=== PATIENT | male | born 1995 | race Caucasian/White ===

== ENCOUNTER 2020-03-02 12:10 | Inpatient (IN) | payer MEDICAID ==
[~2020-03-02] VITALS: Ht 170.2 cm; Wt 97.5 kg
[2020-03-02 12:20] VITALS: BP 130/84
--- NOTE | 2020-03-02 12:20 | NUR ---
Patient ambulated to bed 2. RN evaluating patient at bedside.
[2020-03-02] MEDS ORDERED: NACL 0.9% 1,000 ML IV SCH ×2 (12:26→13:30)
[2020-03-02] MEDS ORDERED: KETOROLAC 30 MG/ML VIAL ONE ×2 (12:27→14:40)
[2020-03-02] MEDS ORDERED: KETOROLAC 30 MG/ML VIAL IVP ONE ×2 (12:30→21:00)
--- NOTE | 2020-03-02 12:40 | NUR ---
C/O SUDDEN ONSET RLQ PAIN 08/13 STARTING YESTERDAY ACCOMPANIED BY DYSURIA & URINARY HESITANCY & HEMATURIA. PT DENIES FEVER, N/V/D. ABDOMEN SOFT/FLAT AND TENDER TO PALPATION IN LRQ. BOWEL SOUNDS PRESENT X4. LBM YESTERDAY & NORMAL PER PT. PT STATES HE HAS A HX OF "SWOLLEN KIDNEYS" BUT CANNOT ELABORATE. PT IS GUARDING ABDOMEN AND IS MOANING IN PAIN. PT PROVIDED WITH A GOWN AND PLACED ON BEDSIDE CUSTOMER CARE REPRESENTATIVE AT THIS TIME. BED IN LOW POSITION, SIDE RAIL UP X1.
--- NOTE | 2020-03-02 12:41 | NUR ---
Patient taken to CT scan via wheelchair by tech.
--- NOTE | 2020-03-02 12:41 | NUR ---
DR. BACON EVALUATING PT AT BEDSIDE
[2020-03-02 12:48] LABS: BASOPHILS # (AUTO) 0.1 K/uL (0.00-0.22); BASOPHILS % (AUTO) 0.3 % (0.0-2.0); EOSINOPHILS # (AUTO) 16.8 K/uL (0-0.4); EOSINOPHILS % (AUTO) 78.2 % (0.0-4.0); HEMATOCRIT 45.9 % (36-52); HEMOGLOBIN 15.6 g/dL (12.0-18.0); LYMPHOCYTES # (AUTO) 1.6 K/uL (2.0-11.5); LYMPHOCYTES % (AUTO) 7.7 % (20.5-51.1); MEAN CORPUSCULAR HEMOGLOBIN 30 pg (27-31); MEAN CORPUSCULAR HGB CONC 34 g/dL (33-37); MEAN CORPUSCULAR VOLUME 88.5 fL (80-94); MONOCYTES # (AUTO) 1.4 K/uL (0.8-1.0); MONOCYTES % (AUTO) 6.7 % (1.7-9.3); NEUTROPHILS # (AUTO) 1.5 K/uL (1.8-7.7); NEUTROPHILS % (AUTO) 7.1 % (42.2-75.2); PLATELET COUNT (AUTO) 329 K/uL (140-450); RED BLOOD CELL COUNT(AUTO) 5.19 MIL/uL (4.20-6.10); RED CELL DISTRIBUTION WIDTH 13.1 % (11.6-13.7); WHITE BLOOD COUNT (AUTO) 21.4 K/uL (4.8-10.8)
[2020-03-02 12:49] LABS: APPEARANCE,URINE HAZY (CLEAR); BILIRUBIN,URINE 2+ (NEGATIVE); BLOOD, URINE NEGATIVE (NEGATIVE); COLOR,URINE ORANGE (YELLOW); LEUKOCYTE ESTERASE ,URINE NEGATIVE (NEGATIVE); NITRITE, URINE POSITIVE (NEGATIVE); PH,URINE 6.5 (5.0-9.0); UGLUCOSE TRACE (NEGATIVE)
--- NOTE | 2020-03-02 12:54 | NUR ---
Patient returned from CT scan. RN re-evaluating the patient at bedside.
[2020-03-02 13:05] LABS: RBC,URINE 0-5 /HPF (0-5); WBC,URINE 0-5 /HPF (0-5)
[2020-03-02 13:07] LABS: ANION GAP 18.4 (8-16); CARBON DIOXIDE 20.9 mmol/L (21-32); CREATININE 1.1 mg/dL (0.6-1.3); POTASSIUM 3.3 mmol/L (3.5-5.1); TOTAL BILIRUBIN 3.4 mg/dL (0.0-1.0)
[2020-03-02 13:08] LABS: URINE AMORPHOUS URATE 2+ /HPF (None Seen)
--- NOTE | 2020-03-02 13:21 | NUR ---
DR. BACON AT BEDSIDE.
[2020-03-02] MEDS ORDERED: ONDANSETRON 4 MG/2 ML VIAL IM/IVP PRN (13:30)
[2020-03-02] MEDS ORDERED: KETOROLAC 15 MG/ML VIAL IVP PRN (13:30)
[2020-03-02] MEDS ORDERED: LEVOFLOXACIN 500 MG/D5W PREMIX 100 ML IV ONE (13:30)
[2020-03-02] MEDS ORDERED: metroNIDAZOLE 500 MG/NS PREMIX 100 ML IV ONE (13:30)
[2020-03-02] MEDS ORDERED: MORPHINE SULFATE 2 MG/ML SYR IVP PRN (13:30)
[2020-03-02] MEDS ORDERED: DOCUSATE SODIUM 100 MG GELCAP PO PRN (13:30)
[2020-03-02] MEDS ORDERED: POTASSIUM CHLORIDE 40 MEQ, LIDOCAINE MPF 1% 25 MG in NACL 0.9% 250 ML IV ONE ×2 (13:40→16:20)
--- NOTE | 2020-03-02 13:45 | NUR ---
Patient will be admitted to care of DR. MARCUS. Admited to MED SURG. Will go to room 126B. Belongings list completed. Report to MST CHARGE, KARLA.
[2020-03-02] MEDS ORDERED: LIDOCAINE 1% 500 MG/50 ML VIAL ONE (13:48)
[2020-03-02] MEDS ORDERED: BUPIVACAINE-MPF/EPI 0.25% 30 ML VIAL INJ ONE (13:48)
[2020-03-02 13:57] LABS: PROTHROMBIN TIME 10.2 secs (10.8-13.4)
[2020-03-02] MEDS ORDERED: BUPIVACAINE-MPF 0.25% 30 ML VIAL INJ ONE (14:01)
[2020-03-02 14:02] LABS: FREE T4 (FREE THYROXINE) 1.16 ng/dL (0.76-1.46); MAGNESIUM 1.6 mg/dL (1.8-2.4); PHOSPHORUS 1.4 mg/dL (2.5-4.9); THYROID STIMULATING HORMONE 0.37 uIU/mL (0.34-3.74)
[2020-03-02] MEDS ORDERED: NEOSTIGMINE 1:1000 10 MG/10 ML VIAL ONE (14:40)
[2020-03-02] MEDS ORDERED: GLYCOPYRROLATE 0.2 MG/ML VIAL ONE (14:40)
[2020-03-02] MEDS ORDERED: PROPOFOL 200 MG/20 ML VIAL IV ONE (14:40)
[2020-03-02] MEDS ORDERED: SUCCINYLCHOLINE CHLORIDE 200 MG/10 ML VIAL IVP ONE (14:40)
[2020-03-02] MEDS ORDERED: HYDROmorphone PFS 2 MG/ML SYR ONE (14:40)
[2020-03-02] MEDS ORDERED: ONDANSETRON 4 MG/2 ML VIAL ONE (14:40)
[2020-03-02] MEDS ORDERED: fentaNYL 0.05 MG/ML VIAL ONE (14:40)
[2020-03-02] MEDS ORDERED: ROCURONIUM 50 MG/5 ML VIAL IV ONE (14:40)
[2020-03-02] MEDS ORDERED: SEVOFLURANE 250 ML BTL INH ONE (14:40)
[2020-03-02] MEDS ORDERED: GENTAMICIN 80 MG/2 ML VIAL ONE (15:37)
[2020-03-02] MEDS ORDERED: MAG SULF 2000 MG/WATER PREMIX 100 ML IV ONE (16:20)
[2020-03-02] MEDS ORDERED: POTASSIUM PHOSPHATE 15 MM in NACL 0.9% 250 ML IV ONE (16:20)
[2020-03-02] MEDS ORDERED: HYDROmorphone 1 MG/ML AMP IVP PRN ×2 (16:25→16:35)
[2020-03-02] MEDS ORDERED: ONDANSETRON 4 MG/2 ML VIAL IVP PRN (16:25)
[2020-03-02] MEDS ORDERED: IBUPROFEN 600 MG TAB PO PRN (16:35)
[2020-03-02] MEDS ORDERED: MULTIVITAMIN-12 10 ML, THIAMINE 100 MG, MAGNESIUM SULFATE 50% 2,000 MG, FOLIC ACID 1 MG... IV SCH ×5 (16:45)
[2020-03-02] MEDS ORDERED: LORazepam 2 MG/ML VIAL IM/IVP PRN (16:45)
--- NOTE | 2020-03-02 17:10 | NUR ---
Patient transferred from OR in stable condition with three abdominal incisions and a CATHERINE drain. Patient denies pain at this time. Patient stable.
[2020-03-02 17:20] VITALS: BP 122/76
[2020-03-02] MEDS ORDERED: SODIUM PHOSPHATE 15 MMOLE in NACL 0.9% 250 ML IV SCH (17:45)
[2020-03-02 17:50] VITALS: BP 116/61
[2020-03-02 18:20] VITALS: BP 118/62
[2020-03-02 18:50] VITALS: BP 114/66
--- NOTE | 2020-03-02 18:50 | NUR ---
Patient resting comfortably in bed with no distress noted. Patient stable since transfer to unit.
--- NOTE | 2020-03-02 19:45 | NUR ---
A/A/O X4. DENIES ANY DISCOMFORT @ THIS TIME.DENIES SOB.DENIES CP.ABD WITH X3 BAND AID D/I. INSTRUCTED TO USE CALL LIGHT NEEDED; WITH IN REACH.IVF D5 1/2 NS + 10 MEQ KCL @125 ML/HR INFUSING WELL.
[2020-03-02 20:00] VITALS: BP 110/74
[2020-03-02] MEDS: POTASSIUM CHL 10 MEQ/D5-1/2NS 1,000 ML IV SCH (20:02)
[2020-03-02] MEDS: metroNIDAZOLE 500 MG/NS PREMIX 100 ML IV SCH (20:44)
--- NOTE | 2020-03-02 21:00 | NUR ---
C/O ACHING PAIN ON HIS ABDOMINAL INCISION SITE SCALE 8/10.TORADOL IV ADM.
[2020-03-02] MEDS ORDERED: MAG SULF 2000 MG/WATER PREMIX 50 ML IV ONE (22:09)
--- NOTE | 2020-03-02 22:24 | NUR ---
MG SO4 2GMS IV @ 25 ML/HR STARTED.
--- NOTE | 2020-03-02 22:25 | NUR ---
IV INSERTED ON HIS LEFT HAND WITH ANGIO #22 X1.POTASSIUM 40 MEQ WITH XYLOCAINE @68 ML/HR INFUSING WELL.
[2020-03-03] VITALS: BP 149/77
--- NOTE | 2020-03-03 00:24 | NUR ---
IV MG SO4 COMPLETED.IV SODIUM PHOSPHATE 15 MM @ 64 ML/HR STARTED.PT REFUSED TO BE SWAB FOR MRSA.
--- NOTE | 2020-03-03 02:00 | NUR ---
RESTING COMFORTABLY IN NO ACUTE DISTRESS.IVF INFUSING WELL.
--- NOTE | 2020-03-03 03:12 | NUR ---
JUAN M RIDER COMPLETED.
[2020-03-03 04:00] VITALS: BP 124/65
--- NOTE | 2020-03-03 04:00 | NUR ---
AFEBRILE.TELE SHOWED ST.DENIES ANY DISCOMFORT @ THIS TIME.
[2020-03-03] MEDS: metroNIDAZOLE 500 MG/NS PREMIX 100 ML IV SCH ×3 (04:26→20:41)
[2020-03-03] MEDS: POTASSIUM CHL 10 MEQ/D5-1/2NS 1,000 ML IV SCH ×3 (04:28→16:35)
[2020-03-03 06:29] LABS: BASOPHILS % (AUTO) 0.4 % (0.0-2.0); HEMATOCRIT 40.3 % (36-52); HEMOGLOBIN 13.7 g/dL (12.0-18.0); LYMPHOCYTES # (AUTO) 0.7 K/uL (2.0-11.5); LYMPHOCYTES % (AUTO) 6.3 % (20.5-51.1); MEAN CORPUSCULAR HEMOGLOBIN 31 pg (27-31); MEAN CORPUSCULAR HGB CONC 34 g/dL (33-37); MEAN CORPUSCULAR VOLUME 90.2 fL (80-94); MONOCYTES # (AUTO) 0.8 K/uL (0.8-1.0); MONOCYTES % (AUTO) 6.8 % (1.7-9.3); NEUTROPHILS # (AUTO) 9.7 K/uL (1.8-7.7); NEUTROPHILS % (AUTO) 86.5 % (42.2-75.2); PLATELET COUNT (AUTO) 229 K/uL (140-450); RED BLOOD CELL COUNT(AUTO) 4.47 MIL/uL (4.20-6.10); RED CELL DISTRIBUTION WIDTH 13.2 % (11.6-13.7); WHITE BLOOD COUNT (AUTO) 11.2 K/uL (4.8-10.8)
--- NOTE | 2020-03-03 06:57 | NUR ---
ENDORSED IN NO ACUTE DISTRESS.IVF INFUSING WELL. TELE SHOWED ST. SAFETY MAINTAINED.
--- NOTE | 2020-03-03 07:08 | NUR ---
RECEIVED BEDSIDE REPORT FROM DIRECTOR REGULATORY AGENCY NURSE GRACE FOR CONTINUITY OF CARE. PT AWAKE AND RESTING ON BED AT THIS TIME. PT IS AAOX4, ABLE TO MAKE NEED KNOWN AND FOLLOW COMMAND. RESPIRATION EVEN AND UNLABORED ON RA. DENIED PAIN, SOB AND DIZZINESS AT THIS TIME. NO SIGNS OF DISTRESS NOTED. IV ON R HAND 22G, CLEAN AND INTACT, SALINE LOCK. LAC 18G, CLEAN AND INTACT, INFUSING 125 L/HR 10 MEQ POTASSIUM. SURGICAL WOUNDS ON ABDOMEN NOTED, AND CATHERINE DRAINAGE IN PLACE AND WITH ABOUT 5 ML PINK DRAINAGE, OTHERWISE SKIN CLEAN AND DRY. PT IS ABLE TO AMBULATORY AND CONTINENT. TELE MONITOR ATTACHED. SAFETY MEASURES IN PLACE. BED IN LOW POSITION AND CALL LIGHT WITHIN REACH. INSTRUCTED PT TO USE THE CALL LIGHT FOR ANY ASSISTANCE AND PT AWARE.
[2020-03-03 07:45] LABS: PHOSPHORUS 2.1 mg/dL (2.5-4.9)
[2020-03-03 07:49] LABS: ALBUMIN 2.9 g/dL (3.4-5.0); CARBON DIOXIDE 24.9 mmol/L (21-32); CREATININE 0.8 mg/dL (0.6-1.3); POTASSIUM 3.9 mmol/L (3.5-5.1); TOTAL BILIRUBIN 3.2 mg/dL (0.0-1.0)
[2020-03-03 07:51] LABS: CHOL/HDL RATIO 2.7 (1-4.5)
[2020-03-03 08:00] VITALS: BP 139/74
--- NOTE | 2020-03-03 09:10 | NUR ---
PATIENT HAS BEEN SCREENED AND CATEGORIZED LOW NUTRITION RISK. PATIENT WILL BE SEEN WITHIN 7 DAYS OF ADMISSION. 03/09/[address]
[2020-03-03] MEDS: THIAMINE 100 MG TAB PO SCH (09:18)
[2020-03-03] MEDS: MULTIVITAMIN 1 TAB PO SCH (09:18)
[2020-03-03] MEDS: HYDROcodone/APAP 5/325 MG 1 TAB TAB PO PRN ×2 (09:18→13:30)
[2020-03-03] MEDS: LEVOFLOXACIN 500 MG/D5W PREMIX 100 ML IV SCH (09:19)
--- NOTE | 2020-03-03 09:20 | NUR ---
ADMINISTERED SCHEDULED MEDS PER MD ORDER, MEDS EDUCATION PROVIDED AND PT VERBALIZED UNDERSTANDING. PT COMPLAINED 5/10 PAIN ON HIS INCISION, MEDICATED WITH PRN NORCO, PT TOLERATED WELL. COLLECTED URINE AND DELIVERED TO LAB. PT AWAKE AND RESTING ON BED AT THIS TIME. NO ACUTE DISTRESS NOTED. TELE MONITOR ATTACHED. SAFETY MEASURES IN PLACE. BED IN LOW POSITION AND CALL LIGHT WITHIN REACH.
[2020-03-03 10:23] LABS: BARBITURATE, URINE NEGATIVE ng/ml (NEG <=200); BENZODIAZEPINE, URINE NEGATIVE ng/mL (NEG <=200); CANNABINOID, URINE NEGATIVE ng/mL (NEG <=50); COCAINE, URINE NEGATIVE ng/mL (NEG <=300); OPIATE, URINE NEGATIVE ng/mL (NEG <=2000); PHENCYCLIDINE SCREEN,URINE NEGATIVE ng/mL (NEG <=25)
--- NOTE | 2020-03-03 11:54 | NUR ---
PT AWAKE AND WATCHING TV ON BED AT THIS TIME. DENIED PAIN, SOB AND DIZZINESS. NO SIGNS OF DISTRESS NOTED. TELE MONITOR ATTACHED. SAFETY MEASURES IN PLACE.
[2020-03-03 12:00] VITALS: BP 120/60
--- NOTE | 2020-03-03 13:31 | NUR ---
ADMINISTERED SCHEDULED ANTIBIOTIC FLAGYL VIA IVPB PER MD ORDER, MED EDUCATION PROVIDED AND PT SAID OK. PT COMPLAINED HE HAS 5/10 PAIN AFTER HE WENT TO BATHROOM AND BACK ON BED, MEDICATED WITH PRN NORCO. PT TOLERATED WELL. NO SIGNS OF DISTRESS NOTED. TELE MONITOR ATTACHED. SAFETY MEASURES IN PLACE.
[2020-03-03] MEDS ORDERED: SIMETHICONE 80 MG TAB.CHEW PO SCH (14:00)
--- NOTE | 2020-03-03 14:16 | NUR ---
ADMINISTERED MED PER MD ORDER, MED EDUCATION PROVIDED TO PT AND PT SAID OK, PT TOLERATED MED WELL. PT AWAKE AND RESTING ON BED AT THIS TIME. DENIED PAIN, SOB AND DIZZINESS. NO SIGNS OF DISTRESS NOTED. TELE MONITOR ATTACHED. SAFETY MEASURERS IN PLACE.
--- NOTE | 2020-03-03 15:48 | NUR ---
PT AWAKE AND RESTING ON BED AT THIS TIME. STATED THAT PAIN IS TOLERABLE AND ONLY HURT WHEN HE MOVES OR GO TO THE BATHROOM. DENIED SOB, DIZZINESS. NO SIGNS OF DISTRESS NOTED. TELE MONITOR ATTACHED. SAFETY MEASURES IN PLACE.
[2020-03-03 16:00] VITALS: BP 121/74
--- NOTE | 2020-03-03 17:59 | NUR ---
EMPTIED CATHERINE DRAINAGE AND RECEIVED 25 ML PINK DRAINAGE. PT AWAKE AND RESTING ON BED AT THIS TIME. DENIED PAIN, SOB AND DIZZINESS. NO SIGNS OF DISTRESS NOTED. TELE MONITOR ATTACHED. SAFETY MEASURES IN PLACE.
--- NOTE | 2020-03-03 19:03 | NUR ---
ENDORSED PT AT BEDSIDE TO LIVESTOCK BRANDS INSPECTOR NURSE GRACE FOR CONTINUITY OF CARE. PT AWAKE AND RESTING ON BED. PT IS IN STABLE CONDITION. TELE MONITOR ATTACHED.
--- NOTE | 2020-03-03 19:45 | NUR ---
A/A/OX4.DENIES ANY DISCOMFORT @ THIS TIME.WATCHING TV.IVF OFF @ THIS TIME;RESTARTED IVF D51/2NS + 10 MEQ KCL @ 125 ML/HR INFUSING WELL.NOTED ABD SLIGHTLY DISTENDED + BS;X3 BAND AID ,D/I WITH CATHERINE WITH SEROSANGUINEOUS DRAINAGE. INSTRUCTED PT TO USE CALL LIGHT NEEDED.
[2020-03-03 20:00] VITALS: BP 125/82
--- NOTE | 2020-03-03 20:00 | NUR ---
AFEBRILE.TELE SHOWED ST.
--- NOTE | 2020-03-03 21:00 | NUR ---
DUE MEDS ADM.IVF INFUSING WELL.
[2020-03-04] VITALS: BP 131/73
[2020-03-04] MEDS: ACETAMINOPHEN 325 MG TAB PO PRN (00:34)
--- NOTE | 2020-03-04 00:34 | NUR ---
TYLENOL ADM FOR TEMP 101.9.
[2020-03-04] MEDS: POTASSIUM CHL 10 MEQ/D5-1/2NS 1,000 ML IV SCH ×3 (00:35→16:35)
--- NOTE | 2020-03-04 02:00 | NUR ---
RESTING COMFORTABLY IN NO ACUTE DISTRESS.
[2020-03-04 04:00] VITALS: BP 140/77
--- NOTE | 2020-03-04 04:00 | NUR ---
AFEBRILE.TELE SHOWED SR.DENIES ANY DISCOMFORT.
[2020-03-04] MEDS: metroNIDAZOLE 500 MG/NS PREMIX 100 ML IV SCH ×3 (05:28→20:22)
[2020-03-04 06:15] LABS: BASOPHILS % (AUTO) 0.2 % (0.0-2.0); EOSINOPHILS % (AUTO) 0.4 % (0.0-4.0); HEMATOCRIT 36.9 % (36-52); HEMOGLOBIN 12.5 g/dL (12.0-18.0); LYMPHOCYTES % (AUTO) 10.8 % (20.5-51.1); MEAN CORPUSCULAR HEMOGLOBIN 31 pg (27-31); MEAN CORPUSCULAR HGB CONC 34 g/dL (33-37); MEAN CORPUSCULAR VOLUME 90.6 fL (80-94); MONOCYTES # (AUTO) 0.7 K/uL (0.8-1.0); MONOCYTES % (AUTO) 7.4 % (1.7-9.3); NEUTROPHILS # (AUTO) 7.6 K/uL (1.8-7.7); NEUTROPHILS % (AUTO) 81.2 % (42.2-75.2); PLATELET COUNT (AUTO) 222 K/uL (140-450); RED BLOOD CELL COUNT(AUTO) 4.07 MIL/uL (4.20-6.10); WHITE BLOOD COUNT (AUTO) 9.4 K/uL (4.8-10.8)
--- NOTE | 2020-03-04 06:45 | NUR ---
ENDORSED RESTING COMFORTABLY IN NO ACUTE DISTRESS.IVF INFUSING WELL.SAFETY MAINTAINED.
[2020-03-04] MEDS ORDERED: HYDR-5122 PO (07:14)
[2020-03-04 07:19] LABS: ANION GAP 13.1 (8-16); CARBON DIOXIDE 26.9 mmol/L (21-32)
--- NOTE | 2020-03-04 07:20 | NUR ---
RECEIVED BEDSIDE REPORT FROM MANAGER OF TAX NURSE GRACE FOR CONTINUITY OF CARE. PT ASLEEP AND RESTING ON BED AT THIS TIME. AROUSABLE TO VOICE. PT IS AAOX4, ABLE TO MAKE NEED KNOWN AND FOLLOW COMMAND. RESPIRATION EVEN AND UNLABORED ON RA. NO SIGNS OF DISTRESS NOTED. IV ON R HAND 22G, CLEAN AND INTACT, SALINE LOCK. LAC 18G, CLEAN AND INTACT, INFUSING 125 L/HR 10 MEQ POTASSIUM. SURGICAL WOUNDS ON ABDOMEN NOTED, AND CATHERINE DRAINAGE IN PLACE AND WITH ABOUT 5 ML PINK DRAINAGE, OTHERWISE SKIN CLEAN AND DRY. PT IS ABLE TO AMBULATORY AND CONTINENT. TELE MONITOR ATTACHED. SAFETY MEASURES IN PLACE. BED IN LOW POSITION AND CALL LIGHT WITHIN REACH.
[2020-03-04 08:00] VITALS: BP 142/76
[2020-03-04] MEDS: LEVOFLOXACIN 500 MG/D5W PREMIX 100 ML IV SCH (09:19)
[2020-03-04] MEDS: THIAMINE 100 MG TAB PO SCH (09:20)
[2020-03-04] MEDS: MULTIVITAMIN 1 TAB PO SCH (09:20)
--- NOTE | 2020-03-04 09:20 | NUR ---
ADMINISTERED MEDS PER MD ORDER, MEDS EDUCATION PROVIDED AND PT SAID OK. PT IS RESTING ON BED AT THIS TIME. NO SIGNS OF DISTRESS NOTED. TELE MONITOR ATTACHED. SAFETY MEASURES IN PLACE.
--- NOTE | 2020-03-04 11:57 | NUR ---
PT AWAKE AND RESTING ON BED. VITAL SIGNS TAKEN. DENIED PAIN, SOB AND DIZZINESS. NO SIGNS OF DISTRESS NOTED. TELE MONITOR ATTACHED. SAFETY MEASURES IN PLACE.
[2020-03-04 12:00] VITALS: BP 130/69
--- NOTE | 2020-03-04 12:35 | NUR ---
PROVIDED INCENTIVE SPIROMETER AND EDUCATED PT ON HOW TO USE AND THE BENEFITS OF USING AFTER SURGERY. ENCOURAGED PT TO USE IT WHEN HE'S AWAKE AND ABLE TO TOLERATE. PT VERBALIZED UNDERSTANDING.
--- NOTE | 2020-03-04 13:01 | NUR ---
ADMINISTERED MED METRONIDAZOLE VIA IVPB PER MD ORDER, MED EDUCATION PROVIDED AND PT SAID OK. ASSESSED WOUND, DRESSING, DRY AND CLEAN. CATHERINE DRAIN IN PLACE AND HAS 5 ML PINK DRAINAGE. PT DENIED PAIN, SOB AND DIZZINESS AT THIS TIME. NO SIGNS OF DISTRESS NOTED. TELE MONITOR ATTACHED. SAFETY MEASURES IN PLACE.
--- NOTE | 2020-03-04 15:17 | NUR ---
PT AWAKE AND WATCHING MOVIE ON BED AT THIS TIME. DENIED SOB, PAIN AND DIZZINESS. ENCOURAGED PATIENT TO USE THE INCENTIVE SPIROMETER, AND PT SAID, " YEA, I WILL. I JUST USE IT AWHILE AGO." NO SIGNS OF DISTRESS NOTED. TELE MONITOR ATTACHED. SAFETY MEASURES IN PLACE.
[2020-03-04 16:00] VITALS: BP 137/81
--- NOTE | 2020-03-04 16:05 | NUR ---
RECEIVED A CALL FROM DR RAPHAEL, UPDATED DR RAPHAEL WITH PT'S CURRENT CONDITION AND LAB RESULT FOR TODAY. ALSO INFORMED THAT DR STEARNS HAS PT ON FLAGYL AND LEVAQUIN, DR RAPHAEL WAS AWARE. RECEIVED VERBAL ORDER FROM DR RAPHAEL TO ADVANCE DIET TO REGULAR, REMOVE DRESSING ON ABDOMEN, AND PT MAY SHOWER. DR RAPHAEL ALSO STATED TO KEEP CATHERINE IN PLACE AND HE WILL REMOVE IT WHEN PT VISITS HIS OFFICE ON COMING SATURDAY. REPEATED AND CONFIRMED ORDERS WITH .
--- NOTE | 2020-03-04 16:10 | NUR ---
EXPLAINED TO PT THAT DR RAPHAEL WANTS DRESSING TO BE REMOVED AND OPEN TO AIR, PT VERBALIZED UNDERSTANDING. PT REQUESTS TO BE PRE-MEDICATED FOR PAIN PRIOR TO DRESSING REMOVAL. WILL MEDICATE. DR STEARNS IS AT BEDSIDE. NO SIGNS OF DISTRESS NOTED. TELE MONITOR ATTACHED. SAFETY MEASURES IN PLACE.
[2020-03-04] MEDS: HYDROcodone/APAP 5/325 MG 1 TAB TAB PO PRN (16:20)
--- NOTE | 2020-03-04 16:21 | NUR ---
PRE-MEDICATED WITH NORCO FOR PAIN PRIOR TO DRESSING REMOVAL.
--- NOTE | 2020-03-04 16:45 | NUR ---
REMOVED ALL ABDOMINAL DRESSING AND WIPED WITH CHLORHEXIDINE GLUCONATE WIPE, PT TOLERATED WELL. INSTRUCTED PT TO BE CAUTIOUS WITH CATHERINE DRAIN THAT HANG OUT GOWN, AND PT WAS AWARE. PT IS TALKING ON HIS PHONE WITH GIRLFRIEND. NO SIGNS OF DISTRESS NOTED. TELE MONITOR ATTACHED. SAFETY MEASURES IN PLACE.
[2020-03-04] MEDS ORDERED: SODIUM PHOS / POTASSIUM PHOS 1 PKT PDR PO SCH (17:30)
--- NOTE | 2020-03-04 17:39 | NUR ---
ADMINISTERED MED PER MD ORDER, MED ED PROVIDED TO PT AND PT VERBALIZED UNDERSTANDING, MIXED WITH 6 OZ OF WATER, PT TOLERATED WELL. PT IS WATCHING TV ON BED AND ABOUT TO GET UP TO EAT HIS DINNER. DENIED PAIN, SOB AND DIZZINESS. NO SIGNS OF DISTRESS NOTED. TELE MONITOR ATTACHED. SAFETY MEASURES IN PLACE.
--- NOTE | 2020-03-04 19:11 | NUR ---
ENDORSED PT AT BEDSIDE TO MEDICAL OFFICE SUPERVISOR NURSE ATUL FOR CONTINUITY OF CARE. PT AWAKE AND WATCHING TV AT THIS TIME. PT IS IN STABLE CONDITION. TELE MONITOR ATTACHED. SAFETY MEASURES IN PLACE.
--- NOTE | 2020-03-04 19:11 | NUR ---
RECEIVED PT AAOX4 , NID , W/ SURGICAL SITES DRY AND INTACT - NO SIGNS OF BLEEDING AT THIS TIME , W/ BEARABLE PAIN HE SAID , AMBULATORY , IV SITES INTACT AND PATENT . SAFETY MEASURES IN PLACE . POC DISCUSSED AND VERBALIZE UNDERSTANDING - CALL LIGHT WITHIN REACH . WILL CONT. TO MONITOR.
[2020-03-04 20:00] VITALS: BP 130/70
--- NOTE | 2020-03-04 22:00 | NUR ---
MADE ROUNDS , C/O PAIN IN IV SITE ON ANTECUBITAL SITE - REMOVE IV CANNULA - NEEDLE INTACT - MINIMAL BLEEDING .PROCEDURE TOLERATED WELL .WILL CONT. TO MONITOR.
[2020-03-05] VITALS: BP 121/82
--- NOTE | 2020-03-05 | NUR ---
FEBRILE - TYLENOL GIVEN ORDERED , WILL CONT. TO MONITOR.
[2020-03-05] MEDS: ACETAMINOPHEN 325 MG TAB PO PRN (00:34)
[2020-03-05] MEDS: POTASSIUM CHL 10 MEQ/D5-1/2NS 1,000 ML IV SCH ×2 (00:36→10:36)
[2020-03-05 04:00] VITALS: BP 120/70
[2020-03-05] MEDS: metroNIDAZOLE 500 MG/NS PREMIX 100 ML IV SCH ×3 (05:06→20:38)
[2020-03-05 05:22] LABS: BASOPHILS % (AUTO) 0.2 % (0.0-2.0); EOSINOPHILS # (AUTO) 0.1 K/uL (0-0.4); EOSINOPHILS % (AUTO) 0.9 % (0.0-4.0); HEMATOCRIT 37.7 % (36-52); HEMOGLOBIN 12.8 g/dL (12.0-18.0); LYMPHOCYTES % (AUTO) 12.8 % (20.5-51.1); MEAN CORPUSCULAR HEMOGLOBIN 31 pg (27-31); MEAN CORPUSCULAR HGB CONC 34 g/dL (33-37); MEAN CORPUSCULAR VOLUME 90.3 fL (80-94); MONOCYTES # (AUTO) 0.8 K/uL (0.8-1.0); MONOCYTES % (AUTO) 9.8 % (1.7-9.3); NEUTROPHILS # (AUTO) 5.9 K/uL (1.8-7.7); NEUTROPHILS % (AUTO) 76.3 % (42.2-75.2); PLATELET COUNT (AUTO) 252 K/uL (140-450); RED BLOOD CELL COUNT(AUTO) 4.17 MIL/uL (4.20-6.10); RED CELL DISTRIBUTION WIDTH 12.9 % (11.6-13.7); WHITE BLOOD COUNT (AUTO) 7.8 K/uL (4.8-10.8)
[2020-03-05 05:46] LABS: ANION GAP 12.2 (8-16); CARBON DIOXIDE 26.8 mmol/L (21-32); CREATININE 0.9 mg/dL (0.6-1.3)
--- NOTE | 2020-03-05 06:41 | NUR ---
INFORM BRANDO PT HAD FEVER -LATEST TEMP 98.8 . WILL CONT. TO MONITOR.
--- NOTE | 2020-03-05 07:30 | NUR ---
RECEIVED BEDSIDE REPORT FROM MASTER CRAFTSMAN NURSE, ATUL, FOR CONTINUITY OF CARE. PT ASLEEP AND RESTING ON BED. AROUSABLE TO VOICE. PT IS AAOX4, ABLE TO MAKE NEED KNOWN AND FOLLOW COMMAND. RESPIRATION EVEN AND UNLABORED ON RA. NO SIGNS OF DISTRESS NOTED. IV ON R HAND 22G, PATENT, AND ABLE TO FLUSH, SALINE LOCK. LAC 18G, CLEAN AND INTACT, INFUSING 125 L/HR 10 MEQ POTASSIUM. SURGICAL WOUNDS ON ABDOMEN NOTED, AND CATHERINE DRAINAGE IN PLACE AND WITH ABOUT 10 ML PINK DRAINAGE, OTHERWISE SKIN CLEAN AND DRY. PT IS ABLE TO AMBULATORY AND CONTINENT. TELE MONITOR ATTACHED. SAFETY MEASURES IN PLACE. BED IN LOW POSITION AND CALL LIGHT WITHIN REACH. WILL CONTINUE TO MONITOR.
[2020-03-05 08:00] VITALS: BP 131/74
--- NOTE | 2020-03-05 08:50 | NUR ---
PT. COMPLAINS OF ABD PAIN 6/10 POST-APPENDECTOMY. WILL MEDICATE.
[2020-03-05] MEDS: HYDROcodone/APAP 5/325 MG 1 TAB TAB PO PRN ×2 (08:55→16:15)
[2020-03-05] MEDS: MULTIVITAMIN 1 TAB PO SCH (08:56)
[2020-03-05] MEDS: LEVOFLOXACIN 500 MG/D5W PREMIX 100 ML IV SCH (08:56)
[2020-03-05] MEDS: THIAMINE 100 MG TAB PO SCH (08:56)
--- NOTE | 2020-03-05 09:00 | NUR ---
MORNING MEDICATIONS GIVEN. NO SIGNS OF DISTRESS NOTED. NORCO PO GIVEN FOR ABD PAIN OF 6/10. WILL CONTINUE TO MONITOR
[2020-03-05 12:00] VITALS: BP 129/68
--- NOTE | 2020-03-05 13:50 | NUR ---
DR. GAUTHIER BY THE BEDSIDE. NO NEW ORDERS FOR NOW, CONTINUE TO MONITOR DRAINAGE OUTPUT. WILL FOLLOW THROUGH.
[2020-03-05 16:00] VITALS: BP 129/87
--- NOTE | 2020-03-05 16:00 | NUR ---
PT. COMPLAINS OF ABD. PAIN 05/13, WILL MEDICATE.
--- NOTE | 2020-03-05 16:10 | NUR ---
NORCO PO GIVEN FOR ABD. PAIN 05/13. NO SIGNS OF DISTRESS NOTED. WILL CONTINUE TO MONITOR.
--- NOTE | 2020-03-05 19:20 | NUR ---
BEDSIDE SHIFT REPORT GIVEN TO POKER DEALER NURSE, JENNA, FOR CONTINUITY OF CARE.
--- NOTE | 2020-03-05 19:21 | NUR ---
RECEIVED BEDSIDE REPORT FROM VP [employer]ETING [employer] NURSE BRAULIO, FOR CONTINUITY OF CARE.. PT IS AAOX4, ABLE TO MAKE NEED KNOWN AND FOLLOW COMMAND. RESPIRATION EVEN AND UNLABORED ON RA. NO SIGNS OF DISTRESS NOTED. IV ON R HAND 22G, PATENT, AND ABLE TO FLUSH, SALINE LOCK. LAC 18G, CLEAN AND INTACT, 10 MEQ POTASSIUM IVF. SURGICAL WOUNDS ON ABDOMEN NOTED, AND CATHERINE DRAINAGE IN PLACE AND W PT IS ABLE TO AMBULATORY AND CONTINENT. TELE MONITOR ATTACHED. SAFETY MEASURES IN PLACE. BED IN LOW POSITION AND CALL LIGHT WITHIN REACH. WILL CONTINUE TO MONITOR.
[2020-03-05 20:00] VITALS: BP 137/86
--- NOTE | 2020-03-05 21:00 | NUR ---
PATIENT WNT TO THE BATHROOM, AMBULATORY, STEADY GAIT, PT SAID HE HAD FLATUS.
--- NOTE | 2020-03-05 22:00 | NUR ---
PT SLEEPING, NO COMPLAINTS OF PAIN
[2020-03-06] VITALS: BP 128/82
[2020-03-06 04:00] VITALS: BP 123/80
--- NOTE | 2020-03-06 04:50 | NUR ---
PT C/O PAIN ON THE LEFT AC IV SITE, REMOVED IV SITE, NO SWELLING, NO BLEEDING ,IV CANNULA INTACT WHEN REMOVED.
[2020-03-06] MEDS: metroNIDAZOLE 500 MG/NS PREMIX 100 ML IV SCH (05:52)
--- NOTE | 2020-03-06 06:00 | NUR ---
DRAINED THE CATHERINE DRAIN - 5 ML, PINKISH COLOR
--- NOTE | 2020-03-06 07:00 | NUR ---
PT SLEEPING BUT EASILY AWAKENED, PT IN STABLE CONDITION. ENDORSED TO NEXT SHIFT NURSE, LINA
[2020-03-06 07:03] LABS: BASOPHILS % (AUTO) 0.2 % (0.0-2.0); EOSINOPHILS # (AUTO) 0.2 K/uL (0-0.4); EOSINOPHILS % (AUTO) 1.7 % (0.0-4.0); HEMATOCRIT 39.3 % (36-52); HEMOGLOBIN 13.6 g/dL (12.0-18.0); LYMPHOCYTES % (AUTO) 10.1 % (20.5-51.1); MEAN CORPUSCULAR HEMOGLOBIN 31 pg (27-31); MEAN CORPUSCULAR HGB CONC 35 g/dL (33-37); MEAN CORPUSCULAR VOLUME 89.6 fL (80-94); MONOCYTES # (AUTO) 1.2 K/uL (0.8-1.0); MONOCYTES % (AUTO) 12.9 % (1.7-9.3); NEUTROPHILS # (AUTO) 7.2 K/uL (1.8-7.7); NEUTROPHILS % (AUTO) 75.1 % (42.2-75.2); PLATELET COUNT (AUTO) 303 K/uL (140-450); RED BLOOD CELL COUNT(AUTO) 4.38 MIL/uL (4.20-6.10); RED CELL DISTRIBUTION WIDTH 13.3 % (11.6-13.7); WHITE BLOOD COUNT (AUTO) 9.6 K/uL (4.8-10.8)
--- NOTE | 2020-03-06 07:05 | NUR ---
RECEIVED BEDSIDE REPORT FROM NIGHTSHIFT NURSE. PT RESTING IN BED. ABLE TO MAKE NEEDS KNOWN. RESPIRATIONS EVEN AND UNLABORED WITH NO SOB OR RESPIRATORY DISTRESS. SKIN WARM AND DRY TO TOUCH. IV SITE IN LEFT HAND 22G IS CLEAN, DRY, AND INTACT. SAFETY MEASURES IN PLACE WILL CONTINUE TO MONITOR
[2020-03-06 07:10] LABS: ANION GAP 11.1 (8-16); CARBON DIOXIDE 29.1 mmol/L (21-32); CREATININE 0.8 mg/dL (0.6-1.3); POTASSIUM 4.2 mmol/L (3.5-5.1)
[2020-03-06 08:00] VITALS: BP 133/79
[2020-03-06] MEDS: POTASSIUM CHL 10 MEQ/D5-1/2NS 1,000 ML IV SCH (08:39)
[2020-03-06] MEDS: LEVOFLOXACIN 500 MG/D5W PREMIX 100 ML IV SCH (08:40)
[2020-03-06] MEDS: MULTIVITAMIN 1 TAB PO SCH (08:40)
[2020-03-06] MEDS: THIAMINE 100 MG TAB PO SCH (08:40)
--- NOTE | 2020-03-06 08:45 | NUR ---
ADMINISTERED SCHED MED PRESCRIBED PER MD ORDER. PT TOLERATED WELL. MEDICATION EDUCATION PERFORMED. PT VERBALIZED UNDERSTANDING. SAFETY MEASURES IN PLACE. WILL CONTINUE TO MONITOR
[2020-03-06] MEDS ORDERED: LEVO750T2 PO (10:01)
[2020-03-06] MEDS ORDERED: AMOX-999 PO (10:01)
[2020-03-06] MEDS ORDERED: LACT10CA1 PO (10:02)
[2020-03-06] MEDS ORDERED: IBUP-2213 PO (10:03)
--- NOTE | 2020-03-06 10:05 | NUR ---
PT IS AWARE OF DISCHARGE TODAY AND WOULD LIKE TO GO HOME BEFORE LUNCH. SAFETY MEASURES IN PLACE. WILL CONTINUE TO MONITOR
[2020-03-06 10:35] VITALS: BP 133/79
--- NOTE | 2020-03-06 11:30 | NUR ---
WENT OVER DISCHARGE INSTRUCTIONS WITH PATIENT. PT SIGNED APPROPRIATE DOCUMENTS. INSTRUCTED PT TO VISIT ED FOR ANY SIGNS OF DISTRESS. PT VERBALIZED UNDERSTANDING. INTACT IV CANNULA, ALLERGY BAND, AND ID BAND REMOVED. TELE MONITOR REMOVED. PT REFUSED FLU VACCINE AND DOES NOT QUALIFY FOR PNA VACCINE. PT GATHERED HIS BELONGINGS AND CHANGED INTO HIS OWN CLOTHES. PT ESCORTED OUT. PT IS STABLE
== END 2020-03-06 11:35 | disposition home or self-care (01) | DRG 710 ==
LOC: MED 12:10 → MMU 13:30
PROVIDERS: ADMIT General Practice; ATTEND General Practice
PROC: 0W9G30Z Drainage of Peritoneal Cavity with Drainage Device, Percutaneous Approach (ICD-10-PCS; 2020-03-02)
PROC: 0DTJ4ZZ Resection of Appendix, Percutaneous Endoscopic Approach (ICD-10-PCS; principal; 2020-03-02 14:30)
DX: A41.9 Sepsis, unspecified organism (principal); D72.1 Eosinophilia; E44.0 Moderate protein-calorie malnutrition; K56.7 Ileus, unspecified; E83.39 Other disorders of phosphorus metabolism; K35.31 Acute appendicitis with localized peritonitis and gangrene, without perforation; L02.211 Cutaneous abscess of abdominal wall; Z88.0 Allergy status to penicillin; N39.0 Urinary tract infection, site not specified; F10.10 Alcohol abuse, uncomplicated; Y90.9 Presence of alcohol in blood, level not specified; K66.0 Peritoneal adhesions (postprocedural) (postinfection); Z68.33 Body mass index [BMI] 33.0-33.9, adult
CPT/HCPCS: 36415; 71045; 74018; 80048; 80053; 80305; 81001; 82150; 82374; 83036; 83605; 83690; 83735; 83880; 84100; 84134; 84439; 84443; 84484; 85025; 85610; 85730; 87040; 87070; 87075; 87186; 87205; 88304; 96361; 96374; 99285; A9153; J0330; J1170; J1580; J1885; J1956; J2001; J2405; J2704; J2710; J3010; J3411; J3475; J3480; J3490; J7030; Q0092; Q9967